=== PATIENT | male | born 1985 | race Caucasian/White ===

== ENCOUNTER 2018-07-24 22:21 | Emergency (ER) | payer OTHER, SELFPAY ==
[2018-07-24 22:22] VITALS: PULSE 109; RESP 18; TEMP 37.3; O2SAT 97; BMI 28.1
--- NOTE | 2018-07-24 22:51 | ED.DCSUM_ITS ---
- ER Visit Summary Date of Service: 07/24/18 Chief Complaint: [] Suicidal ideation History of Present Illness: The patient is a 33 M complaining of suicidal thoughts last 7 days gradual onset. 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 He has been off his medications for the last 6 months. He has been on Seroquel, Risperdal, Depakote, Wellbutrin. He states that they make him too tired. He has not seen a psychiatrist for some time. He has overdosed in the past. Stated he has been hearing some voices since he has been off his medications recently Physical Examination: [] Vital signs reviewed General: Well-nourished well-developed Head: Normocephalic atraumatic Eyes: Pupils equal round and reactive to light extraocular movements intact ENT: TMs clear no hemotympanum no trauma Neck: Nontender full range of motion Cardiovascular: Regular rate rhythm no murmurs normal S1-S2 Respiratory: No distress clear to auscultation bilaterally chest nontender Abdomen: Soft nontender nondistended normal bowel sounds no masses Back: Nontender no CVA tenderness Extremities: Nontender active range of motion ?4 extremities no trauma Skin: Normal color no trauma Neuro alert oriented cranial nerves II through XII intact normal strength sensation reflexes Psych: Positive suicidal ideation. Positive flight of thoughts Test Results: [] Emergency Department Course and Treatment: [] Lab work obtained. Patient will be seen by crisis the patient does have a significant leukocytosis of 21,000. He does not have a source of infection however. He denies feeling sick. Denies any short miss of breath or sore throat or cough or ear pain. He denies any skin infection. Urinalysis shows no evidence of infection. X-ray shows no pneumonia or infiltrates. No fever to suggest infection. At this time I feel he is medically cleared for psychiatric evaluation and further outpatient management of this leukocytosis that is nonspecific. Treatment Plan: [] Disposition: [] Impression: [] Suicidal ideation Non Specific leukocytosis This note was generated with [email or web address] dictation software. It may contain incorrect words, spelling, and punctuation that were not noted in review of the chart prior to signing ED Disposition - Plan for ED Patient: Chief Complaint: Suicidal Referrals: Care Physician,No Primary [Primary Care Provider] -
--- NOTE | 2018-07-24 22:55 | ED.RN ---
SITTER IN THE ROOM
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
[2018-07-24 23:13] LABS: Absolute Neutrophil Count 17.2 X10^3/uL (2.0-7.7); Basophil# 0.06 X10^3/uL; Basophil% 0.3 % (0-1); Eosinophil# 0.03 X10^3/uL; Eosinophils% 0.1 % (0-5); Hematocrit 49.8 % (40-54); Hemoglobin 16.8 g/dl (13.0-16.5); Lymphocyte % 10.9 % (19-41); Mean Corp Hgb Conc 33.7 g/gl (32-36); Mean Corpuscular Hgb 27.1 pg (27.0-32.0); Mean Corpuscular Volume 80.5 fL (80-94); Mean Platelet Vol. 10.6 fl (6.2-12.0); Monocyte# 1.37 X10^3/uL; Monocyte% 6.5 % (0-10); Neutrophil # 17.23 X10^3/uL (2.7-7.7); Neutrophil % 81.9 % (47-70); Platelet Count 298 K/mm3 (150-450); RBC Distribution Width CV 14.2 % (11.6-14.6); RBC Distribution Width SD 41.2 fl (35.1-43.9); Red Blood Count 6.19 M/mm3 (4.6-6.2); White Blood Count 21.1 K/mm3 (4.4-11.0)
[2018-07-24 23:14] LABS: Anion Gap 9 (5-15); BUN 22 mg/dL (7-18); Calcium,Total 9.5 mg/dL (8.5-10.1); Chloride 105 mmol/L (98-107); EST Glomerular Filtration Rate 82 mL/min (>60); Est Glom Filt Rate - Afr Amer 100 mL/min (>60); Estimated Creatinine Clearance 99.55 ml/min; Glucose 71 mg/dL (74-106); POSITIVE COUNT NO; POSITIVE DIFFERENTIAL NO; POSITIVE MORPHOLOGY NO; Potassium 3.9 mmol/L (3.5-5.1); Sodium Level 139 mmol/L (136-145)
[2018-07-24 23:26] VITALS: RESP 16
[2018-07-24 23:35] LABS: Amphetamine Urine VISTA NEGATIVE (<1000 ng/mL); Barbiturate Urine VISTA NEGATIVE (< 200 ng/mL); Benzodiazepine Urine VISTA NEGATIVE (< 200 ng/mL); Cocaine Urine VISTA NEGATIVE (< 300 ng/mL); Ecstacy Urine VISTA NEGATIVE (< 500 ng/mL); Methadone Urine VISTA NEGATIVE (< 300 ng/mL); PCP Urine VISTA NEGATIVE (< 25 ng/mL); THC Urine VISTA POSITIVE (< 50 ng/mL); Vista UDS pH Range 5
[2018-07-24 23:45] LABS: Alcohol, Blood (Medical)-Serum < 3.0 mg/dL
[2018-07-25] VITALS (9 sets, daily range): BP systolic 115–138; BP diastolic 61–86; PULSE 71–96; RESP 16–20; TEMP 37.2; O2SAT 20–99
--- NOTE | 2018-07-25 00:05 | RAD_ITS ---
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 Normal heart size. No vascular congestion, pleural effusion, or acute pulmonary infiltration. No pneumothorax. The bony thorax appears intact. IMPRESSION: No acute cardiopulmonary disease. at 0122 Reported and signed by: Sid Sharma MD Electronically Signed: Sid Sharma, at 1:20 EST Tel , Service support , RAD/Chest PA and Lateral
[2018-07-25 00:14] LABS: Acetaminophen (Tylenol) Level < 10.0 ug/mL (10.0-30.0)
[2018-07-25 00:19] LABS: Color, Urine Yellow (Yellow); Glucose, Dipstick Normal (Normal); Leukocyte Esterase-Dipstick 25 /ul (Negative); Nitrite-Dipstick Negative (Negative); Occult Blood-Urine 25 /ul (Negative); Protein-Dipstick 30 mg/dl (Negative); Urine Bilirubin Dipstick Negative (Negative); Urine Clarity Clear (Clear); Urine Urobilinogen 1 mg/dl (Normal)
[2018-07-25] MEDS: Ibuprofen 400 MG Tablet 800 MG PO (00:24)
[2018-07-25 00:31] LABS: Ketone-Dipstick 150 mg/dl (Negative)
[2018-07-25 00:32] LABS: Bacteria RARE /hpf (None Seen); Mucous, Urine 2+ /hpf (<or=2+); Red Blood Cells-Urine 0-5 SEEN /hpf (0-5)
[2018-07-25 00:33] LABS: Squamous Epithelial Cells - UA 0-5 SEEN /hpf (0-5); White Blood Cells 0-5 SEEN /hpf (0-5)
--- NOTE | 2018-07-25 00:35 | ED.RN ---
THIS NURSE SPOKE WITH DR OREILLY ABOUT GIVING PT MOTRIN FOR HEADACHE AND POSSIBLY ATIVAN TO HELP THE PT WHO IS RESTLESS RELAX
[2018-07-25] MEDS: LORazepam 1 MG Tablet PO (00:50)
[2018-07-25 06:12] LABS: Absolute Lymphocyte Count 3.07 X10^3/ul (0.83-4.51); Absolute Neutrophil Count 7.6 X10^3/uL (2.0-7.7); Basophil# 0.06 X10^3/uL; Basophil% 0.5 % (0-1); Eosinophil# 0.22 X10^3/uL; Eosinophils% 1.8 % (0-5); Lymphocyte # 3.07 X10^3/ul (4.0); Lymphocyte % 25.6 % (19-41); Mean Corp Hgb Conc 33.3 g/gl (32-36); Mean Corpuscular Hgb 27.2 pg (27.0-32.0); Mean Corpuscular Volume 81.5 fL (80-94); Mean Platelet Vol. 9.9 fl (6.2-12.0); Monocyte# 1.01 X10^3/uL; Monocyte% 8.4 % (0-10); Neutrophil # 7.61 X10^3/uL (2.7-7.7); Neutrophil % 63.4 % (47-70); Platelet Count 242 K/mm3 (150-450); RBC Distribution Width CV 13.8 % (11.6-14.6); RBC Distribution Width SD 41.2 fl (35.1-43.9); Red Blood Count 5.52 M/mm3 (4.6-6.2)
[2018-07-25 06:13] LABS: POSITIVE COUNT NO; POSITIVE DIFFERENTIAL NO; POSITIVE MORPHOLOGY NO
--- OUTSIDE RECORDS SUMMARY | 2018-09-09 15:51 | XMS RPT_ITS ---
:1985 Author Organization [place] Care Team Providers Name Role Phone RENEE CONNOR Attending Unavailable BRONSON LEE Referring Unavailable GEETA, RENEE Zeb Primary Care Unavailable GEETA RENEE Zeb Attending Unavailable BRONSON LEE Referring Unavailable FLOWER, RENEE N Primary Care Unavailable GEETA, RENEE N Attending Unavailable Gwyn Stone Attending Unavailable Primay Care Physicia, No Primary Care Unavailable PROBLEMS PROBLEMS DATE TYPE CONDITION / CODE ATTENDING STATUS SOURCE 08/01/2018 Admitting I10 - Essential FLOWER, RENEE Active [place] diagnosis (primary) N [facility] hypertension / System I10(ICD-10) Repository 08/01/2018 Admitting M25.50 - Pain in FLOWER, RENEE Active Plain diagnosis unspecified joint N [facility] / M25.50(ICD-10) System Repository 08/01/2018 Admitting M54.5 - Low back RENEE CONNOR Active [place] diagnosis pain / N [facility] M54.5(ICD-10) System Repository 08/01/2018 Admitting M25.562 - Pain in RENEE CONNOR Active [place] diagnosis left knee / N [facility] M25.562(ICD-10) System Repository 08/01/2018 Admitting M25.561 - Pain in RENEE CONNOR Active [place] diagnosis right knee / N [facility] M25.561(ICD-10) System Repository 08/01/2018 Admitting M25.552 - Pain in RENEE CONNOR Active [place] diagnosis left hip / N [facility] M25.552(ICD-10) System Repository PROCEDURES PROCEDURES No Procedure Records FoundRESULTS RESULTS XR LUMBAR SPINE 4 Observed: 08/01/2018 Status: F Source: [place] MIN 2:29 PM [facility] REPOSITORY [facility] Name: YOHANNES TEIXEIRA [address] [place] [address] Phys: RENEE REED , ENGINEERING [place] [address] : 1985 Age: 33 Acct: [id number] Loc: [facility] MRN/Unit No.: [id number] Status: REG CLI Exam Date: 08/01/18 Accession Number: [id number] Exam: [id number] RAD/XR Lumbar Spine 4 View Min XR Lumbar Spine 4 View Min PLAIN FILMS OF THE LUMBAR SPINE COMPARISON: CT of the abdomen and pelvis from 04/19/2016. REASON FOR STUDY: Back pain. REPORT: The oblique films show no gross defects. On the lateral film there is a normal lumbar lordosis. Disc spaces and vertebral heights are intact. No intrinsic bony lesions are noted. No subluxations are noted. No scoliosis is noted. Paraspinal musculature and limited views of the lower thoracic spine and pelvis are unremarkable. IMPRESSION: Nonacute unremarkable plain films of the lumbar spine. Recommend followup as needed. CC: RENEE CONNOR Technologist: VLADISLAV ALEJANDRA Dictated By: YOLANDA BLANCHARD Signed Date/Time: 08/01/18, 1429 Dictated Date/Time: 08/01/18 1426 Tablet Machine Operator: JUAREZ BERNABE Printed Date/Time: , This report was electronically signed in another vendor system XR HIP 1 VIEW RIGHT Observed: 08/01/2018 Status: F Source: [place] 2:26 PM [facility] Name: [id number] Phys: RENEE REED , [place] [address] : 1985 Age: 33 Acct: [id number] Loc: [facility] MRN/Unit No.: [id number] Status: REG CLI Exam Date: 08/01/18 Accession Number: [id number] Exam: [id number] RAD/XR Hip 1 View Right XR Hip 1 View Right RIGHT HIP REASON FOR STUDY: Pain. COMPARISON: Plain film study of the pelvis done the same day. REPORT: The right hip shows no fracture, dislocation or bony lesions. Bone density is normal. No advanced degenerative changes are noted. The soft tissues are unremarkable. IMPRESSION: Unremarkable plain films of the right hip. CC: RENEE CONNOR Technologist: VLADISLAV ALEJANDRA Dictated By: YOLANDA BLANCHARD Signed Date/Time: 08/01/18, 1426 Dictated Date/Time: 08/01/18 1423 Tablet Machine Operator: JUAREZ BERNABE Printed Date/Time: , This report was electronically signed in another vendor system XR KNEE >4 VIEWS Observed: 08/01/2018 Status: F Source: [place] RIGHT 2:13 PM [facility] Name: [id number] Phys: RENEE REED Zeb , [place] [address] : 1985 Age: 33 Acct: [id number] Loc: [facility] MRN/Unit No.: [id number] Status: REG CLI Exam Date: 08/01/18 Accession Number: [id number] Exam: [id number] RAD/XR Knee >4 Views Right XR Knee >4 Views Right RIGHT KNEE: COMPARISON: None. REASON FOR STUDY: Pain and decreased range of motion. No known injury. REPORT: Four-views are done of the right knee. Bone density is unremarkable. No fracture or dislocation or effusion is noted. The compartments are well-spaced. Patella is normally positioned. No soft tissue mass or foreign body is noted. IMPRESSION: Nonacute plain films of the right knee. Recommend follow up as needed. CC: RENEE CONNOR Technologist: VLADISLAV ALEJANDRA Dictated By: YOLANDA BLANCHARD Signed Date/Time: 08/01/18, 1412 Dictated Date/Time: 08/01/18 1350 Tablet Machine Operator: [email or web address] Printed Date/Time: , This report was electronically signed in another vendor system XR HIP 2 TO 3 VIEW Observed: 08/01/2018 Status: F Source: [place] W PELVIS LT 2:13 PM [facility] Name: [id number] Phys: VOLDNESS,RENEE N , [employer] [place] [address] : 1985 Age: 33 Acct: [id number] Loc: [facility] MRN/Unit No.: [id number] Status: REG CLI Exam Date: 08/01/18 Accession Number: [id number] Exam: [id number] RAD/XR Hip 2 to 3 View W Pelvis Lt XR Hip 2 to 3 View W Pelvis Lt PELVIS AND LEFT HIP REASON FOR STUDY: Pain and decreased range of motion. REPORT: 1 view was done of the pelvis along with an additional view of the left hip in mild external rotation and abduction. No fracture, dislocation or bony lesions are noted. No degenerative changes are present. Soft tissues are unremarkable. No foreign bodies are noted. IMPRESSION: Unremarkable plain films of the pelvis and left hip. Recommend followup as needed. CC: RENEE CONNOR Technologist: VLADISLAV ALEJANDRA Dictated By: YOLANDA BLANCHARD Signed Date/Time: 08/01/18, 1412 Dictated Date/Time: 08/01/18 1359 Tablet Machine Operator: [email or web address] Printed Date/Time: , This report was electronically signed in another vendor system XR KNEE >4 VIEWS Observed: 08/01/2018 Status: F Source: [place] LEFT 12:52 PM [facility] Name: [id number] Phys: VOLDNESS,RENEE N , [employer] [place] [address] : 1985 Age: 33 Acct: [id number] Loc: [facility] MRN/Unit No.: [id number] Status: REG CLI Exam Date: 08/01/18 Accession Number: [id number] Exam: [id number] RAD/XR Knee >4 Views Left XR Knee >4 Views Left LEFT KNEE REASON FOR STUDY: Pain chronically. No injury. COMPARISON: Plain films of the left knee from 05/16/2016. REPORT: 5 images were done of the left knee. Bone density is normal. No fracture or dislocation or bony lesions are noted. No joint effusion is noted. The compartments are well spaced. No soft tissue mass or foreign body is noted. IMPRESSION: Unremarkable plain films of the left knee. Recommend follow-up as needed. CC: RENEE CONNOR Technologist: VLADISLAV ALEJANDRA Dictated By: YOLANDA BLANCHARD Signed Date/Time: 08/01/18, 1252 Dictated Date/Time: 08/01/18 1238 Tablet Machine Operator: JUAREZ BERNABE Printed Date/Time: , This report was electronically signed in another vendor system CBC WITH DIFFERENTIAL Collected: 08/01/2018 Status: F Source: [place] 11:38 [facility] REPOSITORY TYPE CODE TESTS RESULT OUT OF REFERENCE UNITS RANGE LAB CBCDIFF CBC Manual Diff NO LAB WBC 3.9-10.6 10:3/uL White Blood High Cell Count 12.4 LAB RBC 4.40-5.90 10:6/uL Red Blood Cell Normal Count 5.83 LAB HGB 13.3-17.7 G/DL Hemoglobin Normal 15.7 LAB HCT 40.0-52.0 % Hematocrit Normal 49.2 LAB MCV 80.0-100.0 CU uM Mean Normal Corpuscular Volume 84.4 LAB MCH 27.0-40.0 PG Low Mean Corpuscular 26.9 Hemoglobin LAB MCHC 31.0-36.0 G/DL Mean Corpusc Normal Hgb Concentration 31.9 LAB RDW 11.5-14.5 Red Cell Normal Distribution 13.4 LAB PLT 130-440 10:3/uL Platelet Count Normal 273 LAB BASO 0-1.0 % Basophils Normal 0.8 LAB EOS 1.0-3.0 % Eosinophils Normal 1.9 LAB GRAN 54.0-62.0 % Neutrophils High 67.1 LAB LYM 20.0-40.0 % Lymphocytes Normal 22.8 LAB MON 4.0-10.0 % Monocytes Normal 7.1 LAB BASO Abs 0.01-0.2 10:3/uL Basophils, Normal Absolute 0.10 LAB EOS Abs 0-0.5 10:3/uL Eosinophils, Normal Absolute 0.23 LAB NEUT Abs 2.0-7.0 10:3/uL Neutrophils, High Absolute 8.28 LAB LYM Abs 1.5-4.0 10:3/uL Lymphocytes, Normal Absolute 2.82 LAB MON Abs 0.2-0.8 10:3/uL Monocytes, High Absolute 0.88 LAB NRBC -0 /100WBC [id number] 0 LAB NRBC Abs -0 10:3/uL Nucleated RBC's, Absolute 0 Performed By: #### CBCD, SR #### [facility] [address], [place] [id number] , Sid Choi M.D. FCAP, FASCP SEDIMENTATION RATE Collected: 08/01/2018 Status: F Source: [place] 11:38 [facility] REPOSITORY TYPE CODE TESTS RESULT OUT OF REFERENCE UNITS RANGE LAB ESR 0-14 mm/Hr Sedimentation Normal Value 9 Performed By: #### CBCD, SR #### [facility] [address] [place] [address] , Sid Choi M.D. FCAP, FASCP COMPREHENSIVE METABOLIC Collected: 08/01/2018 Status: F Source: [facility] 11:38 [facility] TYPE CODE TESTS RESULT OUT OF REFERENCE UNITS RANGE LAB SOS 136-145 MMOL/L Sodium Serum Normal 141 LAB PO 3.6-5.0 MMOL/L Potassium Normal Blood 4.2 LAB CS 98-107 MMOL/L Chloride Normal 100 LAB TCO 22-29 MMOL/L Total CO2 Normal 26 LAB ANION 9-15 mmol/L Anion Gap Normal 15 LAB ALB 4.0-4.9 G/DL Albumin Normal 4.6 LAB ALP 40-129 U/L Alkaline Normal Phosphatase 77 LAB SGPT 5-41 U/L ALT Alanine Normal Transamine 19 LAB SGOT 5-40 U/L AST Aspartate Normal Transaminase 28 LAB BIT 0.2-1.2 MG/DL Bilirubin Normal Total 0.4 LAB CELESTINO 8.6-10.0 MG/DL Calcium Normal 9.6 LAB BUN 6.0-20.0 MG/DL Blood Urea Normal Nitrogen 11.0 LAB CRE2 0.67-1.17 MG/DL Creatinine Normal 0.80 LAB EGFR mL/min 26492-8 > 60 Result Comment: THE GFR IS ESTIMATED USING THE MDRD STUDY EQUATION. *NOTE* IF THE RACE OF THE PATIENT WAS UNKNOWN AT THE TIME OF REGISTRATION, AND THE PATIENT IS , MULTIPLY THE EGFR RESULT PROVIDED BY 1.21. NORMAL: EGFR >60.0 LAB BG 70-100 MG/DL Normal Glucose, Blood 70 Result Comment: INTREPRETATION FOR FASTING BLOOD GLUCOSE: 70-100 mg/dl NORMAL GLUCOSE TOLERANCE 100-125 mg/dl IMPAIRED FASTING GLUCOSE (PRE-DIABETES) >125 mg/dl DIABETES - ON MORE THAN ONE TESTING LAB TP 6.4-8.3 G/DL Normal Total Protein 8.0 Performed By: #### ADP, CP1, TSH #### [facility] [address] [place] [address] , Roscoe Chandra, FASCP LIPID PROFILE Collected: 08/01/2018 Status: F Source: [place] 11:38 AM [facility] REPOSITORY TYPE CODE TESTS RESULT OUT OF REFERENCE UNITS RANGE LAB CHO 0-199 MG/DL Cholesterol Normal 120 LAB HDL >55 MG/DL Low HDL Cholesterol 47 LAB LDL <100 mg/dl LDL Cholesterol calculated 56 LAB TRIG <150 mg/dl Triglycerides 86 LAB RR Risk Ratio 2.55 Result Comment: RISK NORMALS MEN WOMEN 1/[address] 23[address]39 11.04 TRIGLYCERIDES >400 MG/DL MAY CAUSE INCONSISTENCIES IN THE LDL. Performed By: #### ADP, CP1, TSH #### [facility] [address] [place] [address] , Roscoe Chandra, FASCMakeda THYROID STIMULATING Collected: 08/01/2018 Status: F Source: [place] HORMONE 11:38 AM [facility] REPOSITORY TYPE CODE TESTS RESULT OUT OF RANGE REFERENCE UNITS LAB TSH 0.270-4.200 uIU/mL Thyroid Normal Stimulating 0.9720 Hormone Performed By: #### ADP, CP1, TSH #### [facility] [address] [place] [address] , Sid Choi M.D. FCAP, FASCP RHEUMATOID FACTOR Collected: 08/01/2018 Status: F Source: [place] SCREEN 11:38 AM [facility] REPOSITORY TYPE CODE TESTS RESULT OUT OF REFERENCE UNITS RANGE LAB RF NEGATIVE Rheumatoid NEGATIVE Factor Screen Performed By: #### RF #### [facility], CLIA# [id number] [address] [place], [place] [address] Sid Choi M.D. Director EMERGENCY DEPARTMENT Observed: 07/25/2018 Status: F Source: [place] SUMMARY 7:15 AM [facility] REPOSITORY [facility] Medical Records Department [address] [place] [address] Emergency Department Summary 07/24/18 2250 MR#: [id number] Acct: [id number] Name: YOHANNES TEIXEIRA Rep #: [id number] : 1985 33 From: Gwyn Stone MD PCP: Care Physician, No Primary Status: REG ER - ER Visit Summary Date of Service: 07/24/18 Chief Complaint: [] Suicidal ideation History of Present Illness: The patient is a 33 M complaining of suicidal thoughts last 7 days gradual onset. He called the [facility] because he had thoughts of overdosing on medication. He has been off his medications for the last 6 months. He has been on Seroquel, Risperdal, Depakote, Wellbutrin. He states that they make him too tired. He has not seen a psychiatrist for some time. He has overdosed in the past. Stated he has been hearing some voices since he has been off his medications recently Physical Examination: [] Vital signs reviewed General: Well-nourished well-developed Head: Normocephalic atraumatic Eyes: Pupils equal round and reactive to light extraocular movements intact ENT: TMs clear no hemotympanum no trauma Neck: Nontender full range of motion Cardiovascular: Regular rate rhythm no murmurs normal S1-S2 Respiratory: No distress clear to auscultation bilaterally chest nontender Abdomen: Soft nontender nondistended normal bowel sounds no masses Back: Nontender no CVA tenderness Extremities: Nontender active range of motion 4 extremities no trauma Skin: Normal color no trauma Neuro alert oriented cranial nerves II through XII intact normal strength sensation reflexes Psych: Positive suicidal ideation. Positive flight of thoughts Test Results: [] Emergency Department Course and Treatment: [] Lab work obtained. Patient will be seen by crisis the patient does have a significant leukocytosis of 21,000. He does not have a source of infection however. He denies feeling sick. Denies any short miss of breath or sore throat or cough or ear pain. He denies any skin infection. Urinalysis shows no evidence of infection. X-ray shows no pneumonia or infiltrates. No fever to suggest infection. At this time I feel he is medically cleared for psychiatric evaluation and further outpatient management of this leukocytosis that is nonspecific. Treatment Plan: [] Disposition: [] Impression: [] Suicidal ideation Non Specific leukocytosis This note was generated with [employer] dictation software. It may contain incorrect words, spelling, and punctuation that were not noted in review of the chart prior to signing ED Disposition - Plan for ED Patient: Chief Complaint: Suicidal Referrals: Care Physician,No Primary [Primary Care Provider] - What to do if you have Problems For any increased pain, shortness of breath, bleeding, nausea or vomiting, chest pain, or any unexpected problems, contact your Primary Care Provider. Call [facility] ([phone]) or report to the closest Emergency Room. Call 911 if necessary. 07/25/18 0715 <Electronically signed by Gwyn Stone MD> Date Gwyn Stone MD Cosigner Signature (If Indicated): Date CC: No Primary Care Physician CBC W/DIFF, AUTOMATED Collected: 07/25/2018 Status: F Source: [place] 5:45 AM [facility] REPOSITORY TYPE CODE TESTS RESULT OUT OF RANGE REFERENCE UNITS LAB L100.1000 4.4-11.0 K/mm3 High WBC 12.0 LAB L100.1200 4.6-6.2 M/mm3 Normal RBC 5.52 LAB L100.1300 13.0-16.5 g/dl Normal HGB 15.0 LAB L100.1400 40-54 % Normal HCT 45.0 LAB L100.1500 80-94 fL Normal MCV 81.5 LAB L100.1600 27.0-32.0 pg Normal MCH 27.2 LAB L100.1700 32-36 g/gl Normal MCHC 33.3 LAB L100.1810 11.6-14.6 % Normal RDW CV 13.8 LAB L100.1820 35.1-43.9 fl Normal RDW SD 41.2 LAB L100.1900 150-450 K/mm3 Normal PLT 242 LAB L100.2000 6.2-12.0 fl Normal MPV 9.9 LAB L100.2100 47-70 % Normal NEUT% 63.4 LAB L100.2200 19-41 % Normal LY% 25.6 LAB L100.2300 0-10 % Normal MONO% 8.4 LAB L100.2400 0-5 % Normal EO% 1.8 LAB L100.2500 0-1 % Normal BASO% 0.5 LAB L100.2550 0.0-0.9 % Normal IM GRAN % 0.300 Result Comment: IG% - Immature Granulocytes (promyelocytes, myelocytes and metamyelocytes) > 1% indicates that a LEFT SHIFT is Present. LAB L100.2620 2.0-7.7 X10 3/uL Normal Absolute Neut 7.6 LAB L100.2720 0.83-4.51 X10 3/ul Normal Absolute Lymph 3.07 Performed By: #### L100.0100 #### [facility] [address] [place], [place], [address] CHEST PA AND LATERAL Observed: 07/25/2018 Status: F Source: [place] 12:06 AM [facility] REPOSITORY [facility] Imaging Services [address] [place] [address] Chest PA and Lateral MR#: [id number] Acct: [id number] Name: YOHANNES TEIXEIRA Rep #: [id number] : 1985 M 33 From: Sid Sharma MD PCP: Care Physician, No Primary Status: REG ER Study: Chest PA and Lateral Date of Exam: 07/25/18 Exam# [id number] Ordering Dr: Gwyn Stone MD 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 Normal heart size. No vascular congestion, pleural effusion, or acute pulmonary infiltration. No pneumothorax. The bony thorax appears intact. IMPRESSION: No acute cardiopulmonary disease. at 0122 Reported and signed by: Sid Sharma MD Electronically Signed: Sid Sharma, at 1:20 EST Tel , Service support , RAD/Chest PA and Lateral CC: No Primary Care Physician; Gwyn Stone MD Tablet Machine Operator: Signed URINE DRUG SCREEN Collected: 07/24/2018 Status: F Source: [place] (VISTA) 11:00 PM [facility] REPOSITORY TYPE CODE TESTS RESULT OUT OF RANGE REFERENCE UNITS LAB L505.0075 TO BE Normal CONFIRMED Result Comment: CONFIRMATORY TESTING FOR ALL POSITIVE URINE DRUG SCREEN RESULTS WILL ONLY BE SENT OUT UPON PHYSICIAN ORDER. VISTA Urine Drug Screen methods provide only preliminary analytical test results. A more specific alternate chemical method must be used in order to obtain a confirmed analytical result. Gas chromatography/mass spectrometery (GC/MS) is the preferred confirmatory method. Clinical consideration and professional judgement should be applied to any drug of abuse test result, particularly when preliminary positive results are used. URINE TCA TESTING MUST BE ORDERED SEPARATELY. USE TEST MNEMONIC: [facility] LAB L505.5005 VISTA UDS PH 5 Normal LAB L505.5015 <1000 ng/mL AMPHETAMINES Normal NEGATIVE LAB L505.5025 < 200 ng/mL BARBITIURATES Normal NEGATIVE LAB L505.5035 < 200 ng/mL BENZODIAZIPINE Normal NEGATIVE LAB L505.5045 < 300 ng/mL COCAINE Normal NEGATIVE LAB L505.5055 < 500 ng/mL ECSTACY Normal NEGATIVE LAB L505.5065 < 300 ng/mL METHADONE Normal NEGATIVE LAB L505.5075 < 300 ng/mL OPIATES Normal NEGATIVE LAB L505.5085 < 25 ng/mL PCP Normal NEGATIVE LAB L505.5095 < 50 High ng/mL THC POSITIVE Performed By: #### L505.5000 #### [facility] [address] [place], [address] URINALYSIS, COMPLETE Collected: 07/24/2018 Status: F Source: [place] 11:00 PM [facility] REPOSITORY Order Comment: Order Date: 07/25/18 How was Urine Obtained? IS MANAGER TO SPECIFY TYPE CODE TESTS RESULT OUT OF RANGE REFERENCE UNITS LAB L400.3000 Yellow COLOR Normal Yellow LAB L400.3050 Clear Normal CLARITY Clear LAB L400.3200 Normal mg/dl Normal GLUCOSE, UR Normal LAB L400.3300 Negative mg/dL Normal BILIRUBIN URINE Negative LAB L400.3400 Negative mg/dl High KETONE UR 150 Result Comment: CRITICAL VALUE VERIFIED. CALLED TO MIGUEL GREER 07/25/18 0031 Yanique Sheldon. RESULTS READ BACK BY SAME . CRITICAL VALUE *H LAB L400.3465 1.002-1.030 Normal SP.GR. DIPSTX 1.030 LAB L400.3550 5.0 - 8.0 pH Normal UR 5.0 LAB L400.3600 Negative mg/dl High 30 PROT DIPSTX LAB L400.3700 Normal mg/dl High 1 UROBILI LAB L400.3750 Negative Normal NITRITE UR Negative LAB L400.3780 Negative /ul High 25 OCCULT BLOOD-UR LAB L400.3800 Negative /ul High 25 LEUK ESTERASE LAB L400.4050 0-5 /hpf Normal WBC 0-5 SEEN LAB L400.4100 0-5 /hpf Normal RBC-UA 0-5 SEEN LAB L400.4150 0-5 /hpf Normal SQUAM EPI 0-5 SEEN LAB L400.4300 None Seen /hpf Normal BACTERIA RARE LAB L400.4350 <or=2+ /hpf 2+ Normal MUCUS, URINE Performed By: #### L400.0001 #### [facility] [address] [place], [address] CBC W/DIFF, AUTOMATED Collected: 07/24/2018 Status: F Source: [place] 10:50 PM [facility] REPOSITORY TYPE CODE TESTS RESULT OUT OF RANGE REFERENCE UNITS LAB L100.1000 4.4-11.0 K/mm3 High WBC 21.1 LAB L100.1200 4.6-6.2 M/mm3 Normal RBC 6.19 LAB L100.1300 13.0-16.5 g/dl High HGB 16.8 LAB L100.1400 40-54 % Normal HCT 49.8 LAB L100.1500 80-94 fL Normal MCV 80.5 LAB L100.1600 27.0-32.0 pg Normal MCH 27.1 LAB L100.1700 32-36 g/gl Normal MCHC 33.7 LAB L100.1810 11.6-14.6 % Normal RDW CV 14.2 LAB L100.1820 35.1-43.9 fl Normal RDW SD 41.2 LAB L100.1900 150-450 K/mm3 Normal PLT 298 LAB L100.2000 6.2-12.0 fl Normal MPV 10.6 LAB L100.2100 47-70 % High NEUT% 81.9 LAB L100.2200 19-41 % Low LY% 10.9 LAB L100.2300 0-10 % Normal MONO% 6.5 LAB L100.2400 0-5 % Normal EO% 0.1 LAB L100.2500 0-1 % Normal BASO% 0.3 LAB L100.2550 0.0-0.9 % Normal IM GRAN % 0.300 Result Comment: IG% - Immature Granulocytes (promyelocytes, myelocytes and metamyelocytes) > 1% indicates that a LEFT SHIFT is Present. LAB L100.2620 2.0-7.7 X10 3/uL High Absolute Neut 17.2 LAB L100.2720 0.83-4.51 X10 3/ul Normal Absolute Lymph 2.30 Performed By: #### L100.0100 #### [facility] [address] [place], [place], [address] BASIC METABOLIC Collected: 07/24/2018 Status: F Source: [place] PROFILE (BMP) 10:50 PM [facility] REPOSITORY TYPE CODE TESTS RESULT OUT OF RANGE REFERENCE UNITS LAB L501.0100 74-106 mg/dL Low GLU 71 Result Comment: Please note revised GLUCOSE reference range effective 2017. LAB L501.1000 7-18 mg/dL High BUN 22 LAB L501.1100 0.70-1.30 mg/dL Normal CREAT,SERUM 1.10 Result Comment: The validity of the calculated GFR AND GFRAA in patients over 70 years has not been determined. Clinical correlation is essential. LAB L501.1110 >60 mL/min Normal EST GFR 82 Result Comment: Non- GFR Calc LAB L501.1115 >60 mL/min Normal EST GFR - AA 100 Result Comment: GFR Calc LAB L501.1255 ml/min Normal Estimated CRCL 99.55 LAB L501.1300 10-20 RATIO Normal BUN/CRE 20.0 LAB L501.2200 8.5-10 mg/dL Normal .1 CA 9.5 LAB L501.5300 136-14 mmol/L Normal 5 NA 139 LAB L501.5600 3.5-5. mmol/L Normal 1 K 3.9 LAB L501.5900 98-107 mmol/L Normal CL 105 LAB L501.6100 21.0-3 mmol/L Normal 2.0 CO2 25.0 LAB L501.6200 5-15 Normal GAP 9 Performed By: #### L500.2500 #### [facility] [address] [place], [place], [id number] ALCOHOL, BLOOD Collected: 07/24/2018 Status: F Source: [place] (MEDICAL)-SERUM 10:50 PM [facility] REPOSITORY TYPE CODE TESTS RESULT OUT OF RANGE REFERENCE UNITS LAB L501.9100 mg/dL Normal SERUM < 3.0 ETOH Result Comment: The serum:whole blood ethanol ratio is approximately 1.14 and varies slightly with hematocrit. Medical Alcohol reference interval and critical value in non-tolerant individuals; 50 - 100 Impairment 100 Intoxication 100 - 250 Severe Poisoning 250 - 400 Deep/possible fatal coma Performed By: #### L501.9100 #### [facility] [address] [place], [place], [id number] ACETAMINOPHEN (TYLENOL) Collected: 07/24/2018 Status: F Source: [place] LEVEL 10:50 PM [facility] REPOSITORY TYPE CODE TESTS RESULT OUT OF REFERENCE UNITS RANGE LAB L501.8400 10.0-30.0 ug/mL ACETAMINOPHEN Low < 10.0 Performed By: #### L501.8400 #### [facility] [address] [place], [address] ALLERGIES ALLERGIES DATE TYPE / CODE NAME / CODE REACTION SEVERITY SOURCE 08/01/2018 Drug haloperidol/ FACE SWELLING Severe (severity [facility] Allergy/4160 [id number](R modifier) [facility] 01142(SNOMED XNORM) (qualifier Repository CT) value) 08/01/2018 Drug tramadol/F00 HIVES Mild (qualifier [facility] Allergy/4160 1239902(RXNO value) [facility] 33078(SNOMED RM) Repository CT) 07/24/2018 Drug haloperidol/ Swelling Unknown [facility] Allergy/4160 [id number]([facility] [address](SNOMED XNORM) Repository CT) ENCOUNTERS ENCOUNTERS ADMIT/DISCHARGE ACCOUNT ADMITTING ENCOUNTER LOCATION SOURCE NUMBER CLASS 08/01/2018/ [id number] Ambulatory [facility]Building:Fadumo Rudolph 8 9 [facility] Repository 08/01/2018/ [id number] Ambulatory MHCPBuilding: Klaudia 8 8 [facility] Repository 08/01/2018/ [id number] Ambulatory [facility]HBuilding:Zack Rudolph 8 1 [facility] Repository 07/24/2018/ [id number] [facility] 8 7 [facility] ing:ED Repository PAYERS PAYERS ENCOUNTER GUARANTOR PAYER SUBSCRIBER SOURCE 08/01/2018 YOHANNES Primary Insurance:[facility] YOHANNES Rudolph [id number] Comm PlanPolpepe ROBINETTEDOB: [facility] MAPLE Number: [id number] System [place], [place] [id number] MAPLE Repository 67586Ujn: ([phone]) Date:[id number] [address] [place], [place] [phone] () [address] [place] [address]2963Evv: [phone]: [phone] 08/01/2018 Secondary Not GivenNICOLE Klaudia Insurance:Self [facility] PayPolicy Number: System Effective Repository Date:2018-08-01 08/01/2018 YOHANNES Primary Insurance:[facility] YOHANNES Rudolph [id number] Comm PlanPolicy ROBINETTEDOB: [facility] MAPLE Number: [id number] System [place], [place] [id number] MAPLE Repository 817[address]Khh: ([phone]) Date:2878-90-16VW [place], [place] [phone] (HP) [address] [place] [address] [phone]: [phone]: (HP) [phone] 08/01/2018 Secondary Not GivenUNK Klaudia Insurance:Self [facility] Health PayPolicy Number: System Effective Repository Date:2018-07-30 08/01/2018 YOHANNES Primary Insurance:[facility] YOHANNES Rudolph [id number] Comm PlanPolicy ROBINETTEDOB: [facility] MAPLE Number: [id number] System [place], [place] [id number] MAPLE Repository 67446Dtm: (740) Date:6521-59-74PY [place], [place] [phone] (HP) [address] [place] [address] 07186Jcv: [phone]: (HP) [phone] 08/01/2018 Secondary Not GivenUNK Klaudia Insurance:Self [facility] Health PayPolicy Number: System Effective Repository Date:2018-07-30 07/24/2018 YOHANNES Primary Insurance:[facility] YOHANNES Yonatan [id number] [place] ROBINETTEDOB: [facility] [place]: [id number] [id number] Repository 785[address]Wkf: ([phone]) Date:0859-01-80[phone] (HP) [address] [place] [phone]: 07/24/2018 Secondary NOT GIVENUNK Yonatan Insurance:SELF PAY [facility] Number: Effective Repository Date:2018-07-24
== END 2018-07-25 08:50 ==
PROVIDERS: Emergency Provider Emergency Medicine
DX: R45.851 Suicidal ideations (principal); F20.9 Schizophrenia, unspecified; F31.9 Bipolar disorder, unspecified; D72.829 Elevated white blood cell count, unspecified; E16.2 Hypoglycemia, unspecified; Z72.0 Tobacco use; Z79.899 Other long term (current) drug therapy
CPT/HCPCS: 71046; 80048; 80307; 80320; 80329; 81001; 85025; 99285; A4216; G0480